=== PATIENT | female | born 1985 | race Asian ===

== ENCOUNTER 2017-08-17 04:32 | Inpatient (IN) | payer MEDICAID ==
[~2017-08-17] VITALS: Ht 167.6 cm; Wt 84.0 kg
[2017-08-17] VITALS (13 sets, daily range): BP systolic 109–130; BP diastolic 55–82; PULSE 62–78; RESP 15–21; TEMP 97.6–98.2; O2SAT 94–100
[~2017-08-17 04:32] MED LIST: BUTA1CAP PO; PROM25SU8 PO
[2017-08-17] MEDS ORDERED: LACTATED RINGER'S 1000 ML INJ 1,000 ML IV ONE ×2 (05:42→12:00)
--- NOTE | 2017-08-17 06:14 | HHI.HP ---
History & Physical H&P Patient Name: Devora Blackman Unit Number: [id number] Date of : 1985 Patient Status: Registered Emergency Room Attending Doctor: Ace Quesada MD HPI HPI Chief Complaint Leaking fluid Date Seen: Aug 17, 2017 Time Seen: 06:02 Travel History International Travel<30 Days: No Contact w/Intl Traveler<30Days: No Known Affected Area: No History of Present Illness HPI 31-year-old 5 para 1 EAB 1 SAB 2 with no care who presents with suspected ruptured membranes. She states that she is not she has been for about 6 weeks based on movement. She reports leakage of clear fluid. She denies bleeding. She reports movement this morning. Her prior delivery was by section for arrest of labor with an 8 pound infant at 1 cm dilated. She admits to active Percocet use up to 50 mg per day with her last use 10 PM. Weeks Gestation: 38 Para: 1 : 5 Miscarriage: 2 : 1 History (Limited) History Past Medical History Narrative Medical Chronic opioid dependence-50 mg of Percocet per day Obstetric History Obstetric History 1 elective , 2 spontaneous abortions One prior 3 years ago No care with this Past Surgical History Narrative Surgical Family History Family History: Negative Social History Alcohol Use: No Tobacco Use: Yes (one half pack per day) Substance Abuse: Yes (Percocet 50 mg per day) Allergies-Medications Allergies-Medications (Allergen,Severity, Reaction): Coded Allergies: No Known Allergies (Verified Allergy, Unknown, 08/17/17) Home Meds Active Scripts Promethazine Hcl (Promethazine Hcl) 25 Mg Tab, 25 MG PO q6h Y for NAUSEA, #6 TAB FOR NAUSEA/VOMITING Prov:Rhona Mcclendon MD 12/23/15 Guiadmdhno-Wccqtebootigm-Wbcub (Fioricet 50-300-40 mg (CAP)) 1 Cap, 1 CAP PO Q4- 6H Y for headache, #15 CAP Prov:Klaus Sy MD 12/23/15 ROS Review of Systems Except as stated in HPI: all other systems reviewed are Neg Physical Exam Physical Exam Narrative GENERAL: Well-nourished, well-developed patient. SKIN: Warm and dry. HEAD: Normocephalic and atraumatic. EYES: No scleral icterus. No injection or drainage. ENT: No nasal drainage noted. Mucous membranes pink. Airway patent. NECK: Supple, trachea midline. No JVD. CARDIOVASCULAR: Regular rate and rhythm without murmurs, gallops, or rubs. RESPIRATORY: Breath sounds equal bilaterally. No accessory muscle use. ABDOMEN/GI: Abdomen soft, non-tender, bowel sounds present, no rebound, no guarding Gravid to [-] weeks size Fundal Height: [38-] point of care ultrasound demonstrates a single vertex intrauterine at 38 weeks by composite of femur length and biparietal diameter GENITOURINARY: External Genitalia: intact and normal in appearance BUS glands: [-Negative] Cervix: [-] Dilatation: [-2] Effacement: [-80] Station: [-2-] Presentation: [Vertex Membranes: [ruptured] Uterine Contractions: [Mild irregular-] FHT's: Category: [1-] Baseline: [-] Reactive: [-] Variability: [-] Decels: [-] EXTREMITIES: No cyanosis or edema. BACK: Nontender without obvious deformity. No CVA tenderness. NEUROLOGICAL: Awake and alert. Motor and sensory grossly within normal limits. Five out of 5 muscle strength in all muscle groups. Normal speech. Data Data Data Vital Signs Reviewed: Yes Orders Orders Ob (2e) Additional Admit Info (08/17/17 05:44) Rubella Immune Status (08/17/17 05:42) Hepatitis Profile (08/17/17 05:42) Rapid Plasma Regin (Rpr) W Ttr (08/17/17 05:42) Type And Screen (08/17/17 05:42) Complete Blood Count With Diff (08/17/17 05:42) No Care Spec Serology (08/17/17 05:42) Admit To Inpatient (08/17/17 ) Code Status (08/17/17 05:42) Vital Signs (Adult) .ON ADMISSION (08/17/17 05:42) Activity Oob Ad Katheryn (08/17/17 05:42) Heart (08/17/17 05:42) Urinary Catheter Management JIM.Q8H (08/17/17 05:42) ^ Preps (08/17/17 05:42) Scd / Tl / Foot Pump JIM.QSHIFT (08/17/17 05:42) Diet Npo (08/17/17 Breakfast) Lactated Ringer's 1000 Ml Inj (Lr 1000 M (08/17/17 05:42) Lactated Ringer's 1000 Ml Inj (Lr 1000 M (08/17/17 06:12) Cefazolin 2 Gm Premix (Ancef 2 Gm Premix (08/17/17 06:45) Citric Acid-Sodium Citrate Liq (Bicitra (08/17/17 07:15) Urinalysis - C+S If Indicated (08/17/17 05:42) Drug Screen, Random Urine (08/17/17 05:42) Inpatient Certification (08/17/17 ) Gc And Chlamydia Pcr (08/17/17 05:54) Comprehensive Metabolic Panel (08/17/17 05:56) MDM MDM Medical Record Reviewed: Yes Narrative Course / MDM Assessment: 31-year-old multiparous female with no care who presents with a 38 week intrauterine and ruptured membranes with prior C- section Plan: labs We discussed trial of labor versus repeat and she desires repeat C- section and tubal sterilization. Ace Quesada MD Aug 17, 2017 06:13 Ace Quesada MD Aug 17, 2017 06:14
[2017-08-17 06:22] LABS: AUTOMATED NEUTROPHIL # 12.2 TH/MM3 (1.8-7.7); BASOPHIL % 0.3 % (0.0-2.0); EOSINOPHIL # 0.1 TH/MM3 (0-0.4); EOSINOPHIL % 0.7 % (0.0-4.0); HEMOGLOBIN 12.3 GM/DL (11.6-15.3); LYMPH % 11.7 % (9.0-44.0); LYMPHOCYTE # 1.8 TH/MM3 (1.0-4.8); MEAN CELL VOLUME 84.6 FL (80.0-100.0); MEAN CORPUSCULAR HEMOGLOBIN 28.1 PG (27.0-34.0); MEAN CORPUSCULAR HGB CONC 33.2 % (32.0-36.0); MEAN PLATELET VOLUME 8.4 FL (7.0-11.0); MONO % 6.4 % (0.0-8.0); NEUT % 80.9 % (16.0-70.0); PLATELET COUNT 225 TH/MM3 (150-450); RED BLOOD COUNT 4.37 MIL/MM3 (4.00-5.30); RED CELL DISTRIBUTION WIDTH 14.2 % (11.6-17.2); WHITE BLOOD COUNT 15.1 TH/MM3 (4.0-11.0)
[2017-08-17 06:25] LABS: BILIRUBIN, URINE NEG (NEG); BLOOD, URINE SMALL (NEG); GLUCOSE,URINE NEG (NEG); KETONE, URINE NEG (NEG); MUCUS URINE FEW /lpf (OCC); NITRITE,URINE NEG (NEG); SQUAMOUS EPITHELIAL CELL URINE 2 /hpf (0-5); URINE COLOR YELLOW (YELLW/STRAW); URINE LEUKOCYTE ESTERASE MOD (NEG)
[2017-08-17 06:40] LABS: ALBUMIN 2.6 GM/DL (3.4-5.0); ALT (GPT) 14 U/L (10-53); AST (GOT) 13 U/L (15-37); BICARBONATE 22.7 MEQ/L (21.0-32.0); BLOOD UREA NITROGEN 7 MG/DL (7-18); CALCIUM 8.2 MG/DL (8.5-10.1); CHLORIDE 107 MEQ/L (98-107); CREATININE 0.49 MG/DL (0.50-1.00); GLOMERULAR FILTRATION RATE 146 ML/MIN (>89); GLUCOSE,RANDOM 93 MG/DL (74-106); SODIUM (NA) 138 MEQ/L (136-145)
[2017-08-17 06:42] LABS: ALKALINE PHOSPHATASE 166 U/L (45-117); TOTAL BILIRUBIN ADULT 0.3 MG/DL (0.2-1.0); TOTAL PROTEIN 6.7 GM/DL (6.4-8.2)
[2017-08-17] MEDS ORDERED: ceFAZolin 2 GM PREMIX 50 ML IV SCH (06:45)
[2017-08-17] MEDS ORDERED: CITRIC ACID-SODIUM CITRATE LIQ 30 ML UDC PO SCH (07:15)
[2017-08-17] MEDS ORDERED: MORPHINE SULFATE PF 5 MG/10 ML VIAL ONE (07:56)
[2017-08-17] MEDS: LACTATED RINGER'S 1000 ML INJ 1,000 ML IV SCH ×2 (08:16→19:23)
[2017-08-17] MEDS ORDERED: EPIDURAL-NALOXONE HCL 0.4 MG/ML AMP IV PUSH PRN (08:47)
[2017-08-17] MEDS ORDERED: EPIDURAL-NO SYSTEMIC NARCOTICS PRN (08:47)
[2017-08-17] MEDS ORDERED: EPIDURAL-DIPHENHYDRAMINE HCL 50 MG/ML VIAL IV PUSH PRN (08:47)
[2017-08-17] MEDS ORDERED: EPIDURAL-DIPHENHYDRAMINE HCL 50 MG CAP PO PRN (08:47)
[2017-08-17] MEDS ORDERED: EPIDURAL-DO NOT ADMINISTER ANTICOAGULANTS PRN (08:47)
[2017-08-17] MEDS ORDERED: ACETAMINOPHEN 1000 MG/100 ML 100 ML IV ONE (09:54)
--- NOTE | 2017-08-17 09:57 | PD.OP ---
Operative Report Date of Surgery: Aug 17, 2017 Preoperative Diagnosis: Term intrauterine with prior now in labor desiring elective repeat and tubal sterilization, no care Postoperative Diagnosis: Same Procedure: Repeat lower uterine segment transverse section and bilateral tubal ligation Anesthesia: Spinal Surgeon: Ace Quesada Smoking Tobacco Packer Hand(s): Mary Jackson Operation and Findings: The patient was taken to the operating room after administration of a satisfactory spinal anesthetic was prepped and draped in dorsal supine position with left lateral tilt. The skin was incised transversely along the previous incision. The subcutaneous tissues tissue was sharply dissected away down to level of the fascia which was nicked in the midline and extended bilaterally with scissors. Fascia was from the underlying muscle with sharp and blunt dissection. The muscle was bluntly divided in the midline and the peritoneum was bluntly entered. A transverse hysterotomy was created in the lower uterine segment and clear fluid was encountered. The vertex was elevated out of the pelvic inlet and delivered easily through the hysterotomy. With fundal pressure and gentle traction remainder the followed easily. Delayed cord clamping was accomplished. The baby was passed to the waiting attendants. The fundus was massaged until the placenta passed spontaneously. The uterus was then exteriorized and the uterine cavity wiped moistened lap sponge. The hysterotomy was then closed with a running suture of 0 Monocryl. After observing excellent hemostasis attention was turned to the sterilization. A segment of tube was elevated and a Sherwood clamp and doubly ligated with 0 plain suture. The knuckle of tube above the suture was excised and passed off as specimen. The same technique was carried out on the opposite tube. The hysterotomy and tubal sites were inspected and determined to be dry. The uterus was replaced in the peritoneal cavity and the fascia was closed with #1 PDS. The septations tissue was closed with 3-0 Vicryl and the skin was closed with 4-0 Vicryl subcuticular sutures and tissue glue. Blood loss was 600 cc's. Complications. Sponge instrument needle counts are correct 3. Ace Quesada MD Aug 17, 2017 09:57
[2017-08-17] MEDS ORDERED: OXYTOCIN 30 UNITS-500ML PREMIX 500 ML IV ONE (10:00)
[2017-08-17] MEDS ORDERED: KETOROLAC TROMETHAMINE 60 MG/2 ML (IM) VIAL IM PRN (10:00)
[2017-08-17] MEDS ORDERED: SODIUM CHLORIDE 0.9% FLUSH 10 ML FLUSH IV FLUSH PRN (10:00)
[2017-08-17] MEDS ORDERED: oxyCODONE/ACETAMINOPHEN 5 MG/325 MG TAB PO PRN (10:00)
[2017-08-17] MEDS ORDERED: ONDANSETRON HCL 4 MG/2 ML VIAL IV PUSH PRN (10:00)
[2017-08-17] MEDS ORDERED: ROCURONIUM INJ 50 MG/5 ML SYRINGE IV PUSH ONE (12:00)
[2017-08-17] MEDS ORDERED: ONDANSETRON HCL 4 MG/2 ML VIAL IV ONE (12:00)
[2017-08-17] MEDS ORDERED: DEXAMETHASONE SOD PHOS 4 MG/ML VIAL IV ONE (12:00)
[2017-08-17] MEDS ORDERED: OXYTOCIN 10 UNIT/ML AMP IV ONE (12:00)
[2017-08-17] MEDS ORDERED: LIDOCAINE HCL 1% PF 5 ML SYRINGE OTHER ONE (12:00)
[2017-08-17] MEDS ORDERED: LACTATED RINGER'S 1000 ML INJ 1,000 ML IV SCH (14:57)
[2017-08-17] MEDS: oxyCODONE/ACETAMINOPHEN 5 MG/325 MG TAB PO PRN ×2 (17:10→21:51)
[2017-08-17] MEDS ORDERED: OXYTOCIN 30 UNITS-500ML PREMIX 500 ML IV PRN (20:00)
[2017-08-17] MEDS: SODIUM CHLORIDE 0.9% FLUSH 10 ML FLUSH IV FLUSH SCH (21:00)
[2017-08-18] MEDS: LACTATED RINGER'S 1000 ML INJ 1,000 ML IV SCH (01:05)
[2017-08-18] MEDS: oxyCODONE/ACETAMINOPHEN 5 MG/325 MG TAB PO PRN ×4 (04:22→23:50)
[2017-08-18 04:27] VITALS: BP 131/62; PULSE 65; RESP 18; TEMP 98.4
[2017-08-18 06:48] LABS: AUTOMATED NEUTROPHIL # 11.8 TH/MM3 (1.8-7.7); BASOPHIL % 0.3 % (0.0-2.0); EOSINOPHIL # 0.1 TH/MM3 (0-0.4); EOSINOPHIL % 0.7 % (0.0-4.0); HEMATOCRIT 33.8 % (35.0-46.0); HEMOGLOBIN 10.9 GM/DL (11.6-15.3); LYMPH % 14.5 % (9.0-44.0); LYMPHOCYTE # 2.3 TH/MM3 (1.0-4.8); MEAN CELL VOLUME 85.5 FL (80.0-100.0); MEAN CORPUSCULAR HEMOGLOBIN 27.7 PG (27.0-34.0); MEAN CORPUSCULAR HGB CONC 32.3 % (32.0-36.0); MEAN PLATELET VOLUME 8.3 FL (7.0-11.0); MONO % 9.3 % (0.0-8.0); MONOCYTE # 1.5 TH/MM3 (0-0.9); NEUT % 75.2 % (16.0-70.0); PLATELET COUNT 227 TH/MM3 (150-450); RED BLOOD COUNT 3.95 MIL/MM3 (4.00-5.30); RED CELL DISTRIBUTION WIDTH 14.2 % (11.6-17.2); WHITE BLOOD COUNT 15.7 TH/MM3 (4.0-11.0)
--- NOTE | 2017-08-18 07:35 | HHI.OB ---
Subjective Post Operative Day: 1 Remarks Patient seen and examined this morning. AFVSS overnight. Postoperative day #1. Patient states her pain is well controlled. Denies any bleeding or drainage from her incision site. Denies dysuria. No breast tenderness. No nausea or vomiting. Denies flatus or BMs yet. Ambulating well. Denies fevers, calf pain, shortness of breath, or cough. She otherwise has no other complaints or concerns this morning. Objective Vitals/I&O Vital Signs Date Time Temp Pulse Resp B/P (MAP) Pulse Ox O2 Delivery O2 Flow Rate FiO2 08/18/17 04:27 98.4 65 18 131/62 (85) 08/17/17 23:23 98.0 08/17/17 23:23 70 16 109/55 (73) 08/17/17 19:16 98.2 78 18 112/76 (88) 08/17/17 17:30 109/66 (80) 08/17/17 17:30 98.0 74 16 98 08/17/17 11:30 97.6 66 15 129/77 (94) 99 08/17/17 11:05 98.0 08/17/17 11:00 98.0 08/17/17 10:52 62 17 114/55 (74) 100 08/17/17 10:32 64 18 113/56 (75) 100 08/17/17 10:19 64 18 128/58 (81) 100 08/17/17 10:10 64 19 118/73 (88) 94 08/17/17 09:59 67 21 130/82 (98) 100 08/17/17 09:53 98.1 Result Diagram: 08/18/17 0604 08/17/17 0604 Objective Remarks GENERAL: Well-nourished, well-developed patient. CARDIOVASCULAR: Regular rate and rhythm without murmurs, gallops, or rubs. RESPIRATORY: Breath sounds equal bilaterally. No accessory muscle use. ABDOMEN/GI: Abdomen soft, non-tender, bowel sounds present. Incision: Clean, dry and intact. Fundus: Firm, non-tender at umbilicus. GENITOURINARY: Light to moderate bleeding. EXTREMITIES: No cyanosis or edema, non-tender, without signs of DVT. Medications and IVs Current Medications Medications (Trade) Dose Ordered Sig/Brittany Route Start Time Stop Time Status Last Admin Lactated Ringer's 1,000 ml @ 150 mls/hr Q6H40M IV 08/17/17 06:12 08/17/17 08:16 Cefazolin Sodium/ Dextrose 50 ml @ 100 mls/hr PROJECT ENGINEER CHEMICALS IV 08/17/17 06:45 08/21/17 06:44 08/17/17 08:16 (Bicitra Liq) 30 ml PROJECT ENGINEER [employer]MICALS PO 08/17/17 07:15 08/21/17 07:14 08/17/17 08:16 Lactated Ringer's 1,000 ml @ 100 mls/hr Q10H IV 08/17/17 14:57 08/18/17 10:56 Oxytocin 500 ml @ 100 mls/hr UNSCH X1 PRN IV 08/17/17 20:00 08/18/17 19:59 (NS Flush) 2 ml BID IV FLUSH 08/17/17 21:00 (NS Flush) 2 ml UNSCH PRN IV FLUSH 08/17/17 10:00 (Toradol Inj) 30 mg Q6H PRN IM 08/17/17 10:00 08/18/17 09:59 (Percocet 5-325 Mg) 1 tab Q4H PRN PO 08/17/17 10:00 (Percocet 5-325 Mg) 2 tab Q4H PRN PO 08/17/17 10:00 08/18/17 04:22 (M-M-R Ii Inj) 0.5 ml ONCE ONCE SQ 08/18/17 16:00 08/18/17 16:01 (Boostrix Inj) 0.5 ml ONCE ONCE IM 08/18/17 16:00 08/18/17 16:01 08/17/17 21:51 (Zofran Inj) 4 mg Q6H PRN IV PUSH 08/17/17 10:00 Miscellaneous Information NO SYSTEMIC NARCOTICS TO BE GIVEN FO... UNSCH PRN .XX 08/17/17 08:47 08/18/17 08:46 (Narcan Inj) 0.4 mg UNSCH PRN IV PUSH 08/17/17 08:47 08/18/17 08:46 (Benadryl Inj) 25 mg Q6H PRN IV PUSH 08/17/17 08:47 08/18/17 08:46 (Benadryl) 50 mg Q6H PRN PO 08/17/17 08:47 08/18/17 08:46 Miscellaneous Information ALL NURSING DEPARTMENTS UNSCH PRN .XX 08/17/17 08:47 08/18/17 08:46 Assessment/Plan Assessment and Plan 31 year-old now POD#1 s/p repeat . 1. Postoperative Care - AFVSS - Incision c/d/i - PreOp Hgb 12.3 --> 10.9 - Percocet and Motrin prn pain - Encouraged OOB, as tolerated - Advised pelvic rest x 6 weeks - Contraception: s/p BTL - F/u in 1 week with OB provider for incision check wdw OB Hospitalist Lokesh Parry MD R2 Aug 18, 2017 07:35
[2017-08-18 08:00] VITALS: BP 108/60; PULSE 68; RESP 20; TEMP 96; O2SAT 0
[2017-08-18] MEDS: SODIUM CHLORIDE 0.9% FLUSH 10 ML FLUSH IV FLUSH SCH (09:00)
[2017-08-18] MEDS: DOCUSATE SODIUM 50 MG/SENNA 8.6 MG TAB PO SCH (10:14)
[2017-08-18] MEDS ORDERED: DIPHTH/TETANUS/ACEL PERTUSSIS (BOOSTER) 0.5 ML VIAL/PFS IM ONE (16:00)
[2017-08-18] MEDS ORDERED: MEASLES, MUMPS, RUBELLA VACCINE 0.5 ML VIAL SQ ONE (16:00)
[2017-08-18 20:00] VITALS: BP 111/70; PULSE 74; RESP 18; TEMP 98.2
[2017-08-19] MEDS: oxyCODONE/ACETAMINOPHEN 5 MG/325 MG TAB PO PRN ×4 (06:33→20:22)
--- NOTE | 2017-08-19 08:09 | HHI.OB ---
Subjective Post Operative Day: 2 Remarks Patient is a 31-year-old delivered at 38 weeks. Patient is day 2 after repeat section. Patient's pain is well-controlled; she rates pain as a 5-6/10. Patient reports minimal bleeding. Patient reports eating and drinking without any nausea or vomiting. Patient has been urinating without issues. Patient has not passed gas or had a bowel movement. Patient denies chest pain and shortness of breath. Patient has been ambulating; she denies lower extremity pain. Patient has decided to formula-feed. (Chantal Kraft MD R1) Remarks Patient seen and evaluated with resident under direct supervision, agree with assessment and plan. (Ace Quesada MD) Objective Vitals/I&O Vital Signs Date Time Temp Pulse Resp B/P (MAP) Pulse Ox O2 Delivery O2 Flow Rate FiO2 08/18/17 20:00 74 111/70 (84) 08/18/17 20:00 98.2 18 08/18/17 08:00 96.0 68 20 108/60 (76) 0 (Chantal Kraft MD R1) Result Diagram: 08/18/17 0604 08/17/17 0604 Objective Remarks GENERAL: Well-nourished, well-developed patient. CARDIOVASCULAR: Regular rate and rhythm without murmurs, gallops, or rubs. RESPIRATORY: No accessory muscle use. ABDOMEN/GI: Abdomen soft, tender, bowel sounds present. Incision: Clean, moist and intact. Fundus: Firm, tender at umbilicus. GENITOURINARY: Light to moderate bleeding. EXTREMITIES: No cyanosis or edema, non-tender, without signs of DVT. Medications and IVs Current Medications Medications (Trade) Dose Ordered Sig/Brittany Route Start Time Stop Time Status Last Admin Lactated Ringer's 1,000 ml @ 150 mls/hr Q6H40M IV 08/17/17 06:12 08/17/17 08:16 Cefazolin Sodium/ Dextrose 50 ml @ 100 mls/hr APPLICATION SUPPORT TECHNICIAN IV 08/17/17 06:45 08/21/17 06:44 08/17/17 08:16 (Bicitra Liq) 30 ml APPLICATION SUPPORT TECHNICIAN PO 08/17/17 07:15 08/21/17 07:14 08/17/17 08:16 (NS Flush) 2 ml BID IV FLUSH 08/17/17 21:00 (NS Flush) 2 ml UNSCH PRN IV FLUSH 08/17/17 10:00 (Percocet 5-325 Mg) 1 tab Q4H PRN PO 08/17/17 10:00 (Percocet 5-325 Mg) 2 tab Q4H PRN PO 08/17/17 10:00 08/19/17 06:33 (Zofran Inj) 4 mg Q6H PRN IV PUSH 08/17/17 10:00 (Jacquie-Colace) 1 tab BID PO 08/18/17 09:00 08/18/17 10:14 (Chantal Kraft MD R1) Assessment/Plan Assessment and Plan Patient is a 31-year-old delivered at 38 weeks. Patient is day 2 after repeat section. * Continue routine care. * Motrin and Percocet when necessary for pain. * Encourage OOB. * Pelvic rest for 6 weeks will need follow-up appointment at that time. * Follow-up appointment in 1 week with OB provider for incision check. * Contraception: s/p BTL * Anticipate discharge tomorrow dw OB Hospitalist. (Chantal Kraft MD R1) Chantal Kraft MD R1 Aug 19, 2017 08:09 Ace Quesada MD Aug 19, 2017 09:02
[2017-08-19] MEDS: SODIUM CHLORIDE 0.9% FLUSH 10 ML FLUSH IV FLUSH SCH (09:00)
[2017-08-19 09:30] VITALS: BP 118/72; PULSE 20; PULSE 83; RESP 20; TEMP 98.8
[2017-08-19] MEDS: DOCUSATE SODIUM 50 MG/SENNA 8.6 MG TAB PO SCH ×2 (10:46→20:22)
[2017-08-19 12:28] LABS: HEPATITIS A AB IGM NEGATIVE (NEGATIVE)
[2017-08-19 12:35] LABS: HEPATITIS B CORE AB IGM NEGATIVE (NEGATIVE); HEPATITIS B SURFACE ANTIGEN NEGATIVE (NEGATIVE); HEPATITIS C AB IgG NEGATIVE (NEGATIVE)
[2017-08-19] MEDS: IBUPROFEN 800 MG TAB PO PRN (15:58)
[2017-08-19 16:00] VITALS: RESP 19
[2017-08-19 17:58] VITALS: RESP 18
[2017-08-19 20:21] VITALS: BP 133/69; PULSE 79; RESP 16; TEMP 97.7
[2017-08-20] MEDS: oxyCODONE/ACETAMINOPHEN 5 MG/325 MG TAB PO PRN ×2 (03:20→09:31)
[2017-08-20] MEDS: IBUPROFEN 800 MG TAB PO PRN (03:20)
[2017-08-20] MEDS: LACTATED RINGER'S 1000 ML INJ 1,000 ML IV SCH (07:32)
[2017-08-20 08:00] VITALS: BP 107/64; PULSE 64; RESP 16; TEMP 98.4
[2017-08-20] MEDS: SODIUM CHLORIDE 0.9% FLUSH 10 ML FLUSH IV FLUSH SCH (09:00)
[2017-08-20] MEDS: DOCUSATE SODIUM 50 MG/SENNA 8.6 MG TAB PO SCH (09:30)
--- NOTE | 2017-08-20 10:09 | HHI.DCPOC ---
Discharge Care Plan Diagnosis: (1) delivery delivered Your Health Problems Are: delivery Report Symptoms to Your Doctor -Temperature above 100.5 degrees -Redness, of incision or excessive or foul smelling drainage -Unusual pain or calf pain -Increased vaginal bleeding -Painful or difficulty urinating -Feelings of extreme sadness or anxiety after 2 weeks Goals to Promote Your Health * To prevent worsening of your condition and complications * To maintain your health at the optimal level Directions to Meet Your Goals Take your medications as prescribed Follow your dietary instruction Follow activity as directed Ensure plenty of rest for recovery Drink fluids for hydration Keep your appointments as scheduled Take your immunizations and boosters as scheduled If your symptoms worsen call your PCP, if no PCP go to Urgent Care Center or Emergency Room Smoking is Dangerous to Your Health. Avoid second hand smoke Call the 24-hour crisis hotline for domestic abuse at Chantal Kraft MD R1 Aug 20, 2017 10:09
[2017-08-20] MEDS ORDERED: IBUP1TAB7 PO (10:15)
[2017-08-20] MEDS ORDERED: PERI PO (10:15)
[2017-08-20] MEDS ORDERED: OXYC1TAB63 PO (10:15)
--- NOTE | 2017-08-20 12:02 | HHI.OB ---
Subjective Post Operative Day: 3 Remarks Ms. Blackman is a 31-year-old delivered at 38 weeks. Patient is day 3 after repeat CS. Ms. Blackman was afebrile with stable VS overnight. Patient reports improved abdominal pain. Patient has been taking Percocet and Ibuprofen for pain control. Patient had a bowel movement since yesterday. No chest pain, shortness of breath, or leg swelling. Patient urinating normally. Decreased vaginal bleeding. Patient is formula feeding at this time. Patient plans to continue to discuss with DCF after discharge. Objective Vitals/I&O Vital Signs Date Time Temp Pulse Resp B/P (MAP) Pulse Ox O2 Delivery O2 Flow Rate FiO2 08/20/17 08:00 98.4 64 16 107/64 (78) 08/19/17 20:21 97.7 79 16 133/69 (90) 08/19/17 17:58 18 08/19/17 16:00 19 Result Diagram: 08/18/17 0604 08/17/17 0604 Objective Remarks GENERAL: Well-nourished, well-developed patient. CARDIOVASCULAR: Regular rate and rhythm without murmurs. Normal perfusion RESPIRATORY: No accessory muscle use. ABDOMEN/GI: Abdomen soft, tender, bowel sounds present. Incision: Clean, moist and intact. Fundus: Firm, tender at umbilicus. GENITOURINARY: Light bleeding. EXTREMITIES: No cyanosis or edema, non-tender, without signs of DVT. Medications and IVs Current Medications Medications (Trade) Dose Ordered Sig/Brittany Route Start Time Stop Time Status Last Admin Lactated Ringer's 1,000 ml @ 150 mls/hr Q6H40M IV 08/17/17 06:12 08/17/17 08:16 Cefazolin Sodium/ Dextrose 50 ml @ 100 mls/hr PERFORMANCE IMPROVEMENT SPECIALIST IV 08/17/17 06:45 08/21/17 06:44 08/17/17 08:16 (Bicitra Liq) 30 ml PERFORMANCE IMPROVEMENT SPECIALIST PO 08/17/17 07:15 08/21/17 07:14 08/17/17 08:16 (NS Flush) 2 ml BID IV FLUSH 08/17/17 21:00 (NS Flush) 2 ml UNSCH PRN IV FLUSH 08/17/17 10:00 (Percocet 5-325 Mg) 1 tab Q4H PRN PO 08/17/17 10:00 (Percocet 5-325 Mg) 2 tab Q4H PRN PO 08/17/17 10:00 08/20/17 09:31 (Zofran Inj) 4 mg Q6H PRN IV PUSH 08/17/17 10:00 (Jacquie-Colace) 1 tab BID PO 08/18/17 09:00 08/20/17 09:30 (Motrin) 800 mg Q8H PRN PO 08/19/17 11:00 08/20/17 03:20 Assessment/Plan Problem List: (1) delivery delivered ICD Codes: O82 - Encounter for delivery without indication Status: Acute Assessment and Plan Patient is a 31-year-old delivered at 38 weeks. Patient is day 3 after repeat section. Continue routine care. -Will discharge home today -Motrin and Percocet when necessary for pain. -Encourage OOB. -Pelvic rest for 6 weeks will need follow-up appointment at that time. -Follow-up appointment in 1 week with OB provider for incision check. -Contraception: s/p BTL Urinalysis abnormal Impression: Urine culture with mixed obie, suggestive of contaminant. No urinary symptoms dw OB Hospitalist Thomas Guzmán MD, R3 Aug 20, 2017 12:02
== END 2017-08-20 12:35 | disposition home or self-care (01) | DRG 765 ==
LOC: HOBED 04:32 → H2EB 05:44 → H1EA 11:15
PROVIDERS: ADMIT Obstetrics & Gynecology; ATTEND Obstetrics & Gynecology
PROC: 10D00Z1 Extraction of Products of Conception, Low, Open Approach (ICD-10-PCS; principal; 2017-08-17)
PROC: 0UB70ZZ Excision of Bilateral Fallopian Tubes, Open Approach (ICD-10-PCS; 2017-08-17)
DX: O34.211 Maternal care for low transverse scar from previous cesarean delivery (principal); O99.324 Drug use complicating childbirth; F11.20 Opioid dependence, uncomplicated; O99.334 Smoking (tobacco) complicating childbirth; Z37.0 Single live birth; Z3A.38 38 weeks gestation of pregnancy; Z30.2 Encounter for sterilization
CPT/HCPCS: 59025; 76815; 80053; 80074; 80307; 81001; 84112; 85025; 86592; 86703; 86762; 86850; 86900; 86901; 87081; 87086; 87150; 87491; 87591; 88302; 90715; J0131; J0690; J1100; J2274; J2405; J2590; J7120